=== PATIENT | male | born 1995 | race Caucasian/White ===

== ENCOUNTER 2020-02-02 20:58 | Emergency (ER) | payer OTHER ==
[~2020-02-02] VITALS: Ht 182.9 cm; Wt 72.6 kg
[2020-02-02 21:19] VITALS: BP 132/78
--- NOTE | 2020-02-02 21:24 | NUR ---
PT AMBULATED TO BED 9 WITH STEADY GAIT
[2020-02-02] MEDS ORDERED: LIDOCAINE MPF 1% 5 ML ONE (21:37)
[2020-02-02] MEDS ORDERED: LIDOCAINE MPF 1% 10 MG/ML VIAL INJ ONE (21:40)
--- NOTE | 2020-02-02 21:45 | NUR ---
24M PRESENTS TO ED WITH C/O ABSCESS ON RIGHT CALF THAT HAS BEEN PRESENT FOR A MONTH. LATELY THE BUMP HAS GOTTEN WORSE. BUMP IS SWOLLEN/RED/HARD TO TOUCH/WARM/RAISED. PMH:PT DENIES NKA
--- NOTE | 2020-02-02 22:00 | NUR ---
I&D SETUP AT BEDSIDE.
[2020-02-02 22:17] VITALS: BP 132/78
--- NOTE | 2020-02-02 22:18 | NUR ---
DR ERVIN AT BEDSIDE PERFORMING I&D PROCEDURE.
--- NOTE | 2020-02-02 22:37 | NUR ---
Patient discharged with v/s stable. Written and verbal after care instructions given and explained. Patient alert, oriented and verbalized understanding of instructions. Ambulatory with steady gait. All questions addressed prior to discharge. ID band removed. Patient advised to follow up with PMD. Rx of MOTRIN AND KEFLEX given. Patient educated on indication of medication including possible reaction and side effects. Opportunity to ask questions provided and answered.PT SENT HOME WITH WORK EXCUSAL
== END 2020-02-02 22:38 | disposition home or self-care (01) ==
LOC: MED 20:58
DX: L02.415 Cutaneous abscess of right lower limb (principal); L03.115 Cellulitis of right lower limb
CPT/HCPCS: 10060; 99283; J2001